=== PATIENT | female | born 1960 | race American Indian/Alaskan Native ===

== ENCOUNTER 2017-10-17 14:59 | Emergency (ER) | payer SELFPAY ==
[~2017-10-17] VITALS: Ht 170.2 cm; Wt 80.2 kg
[2017-10-17] MEDS ORDERED: METO50 PO (15:07)
[2017-10-17] MEDS ORDERED: Lopressor 50 mg50 MG PO (15:16)
[2017-10-17] MEDS ORDERED: Mupirocin22 GM TOP (15:29)
== END 2017-10-17 15:59 | disposition home or self-care (01) ==
LOC: ER 14:59
DX: Z76.0 Encounter for issue of repeat prescription (principal); L08.9 Local infection of the skin and subcutaneous tissue, unspecified; Z88.8 Allergy status to other drugs, medicaments and biological substances; Z79.899 Other long term (current) drug therapy; F17.220 Nicotine dependence, chewing tobacco, uncomplicated
CPT/HCPCS: 99281